=== PATIENT | female | born 1960 | race Caucasian/White ===

== ENCOUNTER 2017-09-08 22:32 | Emergency (ER) | payer OTHER ==
[~2017-09-08] VITALS: Ht 162.6 cm; Wt 95.2 kg
[~2017-09-08 22:32] MED LIST: ANT12.5 PO; BENAZEPRIL HCL/1 TAB PO; BG MC; CYMBALTA60 M1 PO; ECO81 PO; GLU500 PO; HYDROCHLOROTH12.5 M2 PO; LIPI20 PO; LOT20 PO
[2017-09-08 22:46] VITALS: Ht 162.6 cm; Wt 95.2 kg
[2017-09-09 01:09] LABS: microscopic required? NO
[2017-09-09 01:14] LABS: BASOPHIL % 0.4 % (0-2); PLATELET COUNT 225 x10^3mcL (130-400)
[2017-09-09 01:18] LABS: CALCIUM 9.8 mg/dL (8.5-10.1); CARBON DIOXIDE 24.8 mmol/L (21-32); CHLORIDE SERUM 100 mmol/L (98-107); CREATININE SERUM 0.7 mg/dL (0.6-1.0); GFR1 > 60 mL/min; GLUCOSE SERUM 186 mg/dL (74-106); POTASSIUM SERUM 3.7 mmol/L (3.5-5.1); SODIUM SERUM 137 mmol/L (136-145)
[2017-09-09 01:23] LABS: ALBUMIN 3.7 g/dL (3.4-5.0); ALKALINE PHOSPHATASE 79 U/L (46-116); ALT/SGPT 37 U/L (14-59); AST/SGOT 23 U/L (15-37); BILIRUBIN TOTAL 0.46 mg/dL (0.20-1.00); TOTAL PROTEIN, SERUM 7.4 g/dL (6.4-8.2)
[2017-09-09 01:46] LABS: UA SPECIFIC GRAVITY 1.025 (1.005-1.035); urine erythrocyte NEGATIVE (NEGATIVE)
[2017-09-09 02:37] LABS: ERYTHROCYTE SED RATE 43 mm/hr (0-30)
[2017-09-09 06:30] VITALS: BP 131/91
== END 2017-09-09 06:30 | disposition home or self-care (01) ==
LOC: ED 22:32
PROVIDERS: Emergency Medicine
DX: R51 Headache (principal); I10 Essential (primary) hypertension; Z88.5 Allergy status to narcotic agent; Z88.6 Allergy status to analgesic agent; Z88.8 Allergy status to other drugs, medicaments and biological substances
CPT/HCPCS: J1100; J1885; J2765; J7030